=== PATIENT | female | born 1950 | race Caucasian/White ===

== ENCOUNTER 2020-11-30 04:37 | Day surgery (SDC) | payer BC ==
[2020-11-28 16:40] VITALS: BMI 20.9
[2020-11-30 13:56] VITALS: TEMP 97.9
[2020-11-30 14:39] VITALS: BP 104/58; PULSE 67
== END 2020-11-30 14:55 | disposition home or self-care (01) ==
LOC: JASU-ENDO 04:37
PROVIDERS: ATTEND Internal Medicine Gastroenterology
PROC: 0DB78ZX Excision of Stomach, Pylorus, Via Natural or Artificial Opening Endoscopic, Diagnostic (ICD-10-PCS; 2020-11-30)
PROC: 0DBK8ZX Excision of Ascending Colon, Via Natural or Artificial Opening Endoscopic, Diagnostic (ICD-10-PCS; principal; 2020-11-30 13:00)
DX: Z12.11 Encounter for screening for malignant neoplasm of colon (principal); D12.2 Benign neoplasm of ascending colon; K21.9 Gastro-esophageal reflux disease without esophagitis; K29.50 Unspecified chronic gastritis without bleeding; Z86.010 Personal history of colon polyps

== ENCOUNTER 2023-11-27 04:39 | Day surgery (SDC) | payer BC ==
[2023-11-24 14:47] VITALS: BMI 20.6
[2023-11-27 09:06] VITALS: TEMP 98.2
[2023-11-27 09:22] VITALS: RESP 18
[2023-11-27 09:31] VITALS: BP 137/57; PULSE 72
== END 2023-11-27 09:46 | disposition home or self-care (01) ==
LOC: JASU-ENDO 04:39
PROVIDERS: ATTEND Internal Medicine Gastroenterology
PROC: 0DJD8ZZ Inspection of Lower Intestinal Tract, Via Natural or Artificial Opening Endoscopic (ICD-10-PCS; principal; 2023-11-27 08:00)
DX: Z12.11 Encounter for screening for malignant neoplasm of colon (principal); Z86.010 Personal history of colon polyps